=== PATIENT | female | born 1990 | race Asian ===

== ENCOUNTER 2023-11-28 02:30 | Emergency (ER) | payer MEDICAID ==
[~2023-11-28] VITALS: Ht 170.2 cm; Wt 122.5 kg
[2023-11-28 02:39] VITALS: BP 146/95; PULSE 97; RESP 18; TEMP 97.3; O2SAT 96
[2023-11-28 03:28] VITALS: O2SAT 96
[2023-11-28] MEDS: IBUPROFEN 800 MG TAB PO ONE (03:28)
[2023-11-28] MEDS: ONDANSETRON 4 MG ODT PO ONE (03:29)
[2023-11-28] MEDS ORDERED: METOCLOPRAMIDE 10 MG TAB PO ONE (04:05)
[2023-11-28 04:17] LABS: FLU A ANTIGEN negative (NEGATIVE); FLU B ANTIGEN NEGATIVE (NEGATIVE)
[2023-11-28] MEDS ORDERED: IBUP-2218 PO (04:20)
[2023-11-28] MEDS ORDERED: ACET-9234 PO (04:20)
== END 2023-11-28 04:29 | disposition home or self-care (01) ==
LOC: MED 02:30
DX: G43.909 Migraine, unspecified, not intractable, without status migrainosus (principal); B34.9 Viral infection, unspecified; Z20.822 Contact with and (suspected) exposure to COVID-19; Z79.1 Long term (current) use of non-steroidal anti-inflammatories (NSAID); Z79.899 Other long term (current) drug therapy
CPT/HCPCS: 87426; 87804; 99283; Q0162

== ENCOUNTER 2024-01-10 09:21 | Emergency (ER) | payer MEDICAID ==
[~2024-01-10] VITALS: Ht 170.2 cm; Wt 124.7 kg
[~2024-01-10 09:21] MED LIST: ACET-9234 PO; IBUP-2218 PO
[2024-01-10 09:42] VITALS: BP 107/51; PULSE 64; RESP 20; TEMP 98.5; O2SAT 99
[2024-01-10 10:16] VITALS: BP 107/51; PULSE 64; RESP 20; TEMP 98.5
[2024-01-10 10:18] VITALS: O2SAT 99
--- NOTE | 2024-01-10 10:29 | NUR ---
33 YO F; NKA; PMHX NONE: 33 YO F; NKA; PMHX NONE; PT C/O COUGH/BODYACHE X 1 WEEK. TAKING OTC MEDICATIONS BUT NOT HELPING; DENIES N/V/D; SKIN IS PINK/WARM/DRY; AAOX4 WITH EVEN AND STEADY GAIT; LUNGS CLEAR BL; HR EVEN AND REGULAR; PT DENIES ANY FEVER, CP, AT THIS TIME; PATIENT STATES PAIN OF 6/10 AT THIS TIME; VSS; PATIENT POSITIONED FOR COMFORT; HOB ELEVATED; BEDRAILS UP X2; BED DOWN. CALL LIGHT WITHIN REACHC; ER MD MADE AWARE OF PT STATUS.
[2024-01-10] MEDS ORDERED: PROM118S5 PO (11:27)
[2024-01-10] MEDS ORDERED: IBUP-2218 PO (12:14)
--- NOTE | 2024-01-10 12:21 | NUR ---
Patient discharged with v/s stable. Written and verbal after care instructions given FOR COUGH Patient alert, oriented and verbalized understanding of instructions. Ambulatory with steady gait. All questions addressed prior to discharge. ID band removed. Patient advised to follow up with PMD. Rx of IBUPROFEN,PROMETHAZINE given. Opportunity to ask questions provided and answered.
== END 2024-01-10 12:21 | disposition home or self-care (01) ==
LOC: MED 09:21
DX: R05.9 Cough, unspecified (principal); J02.9 Acute pharyngitis, unspecified; M79.18 Myalgia, other site; Z79.899 Other long term (current) drug therapy
CPT/HCPCS: 99283